=== PATIENT | male | born 1985 | race Caucasian/White ===

== ENCOUNTER 2016-05-13 09:22 | Emergency (ER) | payer MEDICAID ==
[~2016-05-13] VITALS: Ht 170.2 cm; Wt 85.7 kg
[2016-05-13 09:22] VITALS: BP_SYST 152
[~2016-05-13 09:22] MED LIST: AMAN100C16 GT; DANT50CA GT; DULR10 RC; FAMO20TA98 GT; LEVE500T13 GT; METH10TA4 GT; MULT-1117 GT; OMEG500C3 GT; SODI1TAB3 GT; TEST2.5G2 TD; UBID400C6 GT; WARF2.5T2 GT; WARF5TAB2 GT
--- NOTE | 2016-05-13 09:22 | NUR ---
VERONICA Cordero from home Patient to ER bed 02 to gown for evaluation. Side rails up. Report given to SUKUMAR Diaz.
--- NOTE | 2016-05-13 09:26 | NUR ---
Dr. Gilliam at bedside for evaluation
[2016-05-13] MEDS ORDERED: GASTROGRAFIN 120 ML ONE (09:37)
--- NOTE | 2016-05-13 09:45 | NUR ---
Stoma site clean, no redness noted, no drainage. Gtube out. Unknow size gtube that came out. Site cleansed with betadine. Dr. Gilliam at bedside for gtube placement. Attempted #20, stoma site almost closed. Placed #10f boo cath with success. #16F gtube placed. Balloon inflated with 15cc NS. Pt tolerated well. Xrays orders for placement verification. Some bleeding noted. Gauze palced
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
[2016-05-13 11:20] VITALS: BP_SYST 136
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
== END 2016-05-13 11:20 | disposition home or self-care (01) ==
LOC: SED 09:22
DX: Z46.59 Encounter for fitting and adjustment of other gastrointestinal appliance and device (principal); Z88.0 Allergy status to penicillin; Z88.1 Allergy status to other antibiotic agents; Z79.899 Other long term (current) drug therapy
CPT/HCPCS: 43760; 74240; 99284; Q9963

== ENCOUNTER 2016-09-18 20:40 | Emergency (ER) | payer MEDICAID ==
[~2016-09-18] VITALS: Ht 177.8 cm; Wt 104.3 kg
[2016-09-18 20:40] VITALS: BP_SYST 112
[2016-09-18] MEDS ORDERED: NEOMYCIN/POLYMYX B/HYDROCORTISONE 10 ML OTIC SOLUTION OT ONE (21:15)
[2016-09-18] MEDS ORDERED: NEOMYCIN/POLYMYX B/HYDROCORTISONE 10 ML EAR DROPS.SUSP OT ONE (21:37)
[2016-09-18 23:06] VITALS: BP_SYST 120
== END 2016-09-18 23:06 | disposition home or self-care (01) ==
LOC: SED 21:35
DX: H60.92 Unspecified otitis externa, left ear (principal); G82.50 Quadriplegia, unspecified; Z88.0 Allergy status to penicillin; Z88.1 Allergy status to other antibiotic agents; Z79.899 Other long term (current) drug therapy
CPT/HCPCS: 99283

== ENCOUNTER 2018-06-12 15:38 | Inpatient (IN) | payer MEDICAID ==
[~2018-06-12] VITALS: Ht 172.7 cm; Wt 84.8 kg
[~2018-06-12 15:38] MED LIST changes: +FAMO-132 GT; -FAMO20TA98 GT; -LEVE500T13 GT; +LEVE500T9 GT
[2018-06-12] MEDS ORDERED: WARF1TAB2 GT (18:14)
[2018-06-12] MEDS ORDERED: LABE100T5 PO (18:14)
[2018-06-12 18:18] VITALS: BP_SYST 126
[2018-06-12 20:00] VITALS: BP_SYST 109
[2018-06-12] MEDS ORDERED: DANTROLENE SODIUM GT SCH (21:00)
[2018-06-12] MEDS: FAMOTIDINE 20 MG TABLET GT SCH (21:58)
[2018-06-12] MEDS: LABETALOL HCL 100 MG TABLET PO SCH (21:58)
[2018-06-12] MEDS: METHYLPHENIDATE HCL 10 MG TABLET GT SCH (21:58)
[2018-06-12] MEDS: LevETIRAcetam 500 MG/5 ML UDC ORAL LIQUID GT SCH (21:59)
[2018-06-12] MEDS: AMANTADINE HCL 100 MG CAP GT SCH (21:59)
[2018-06-12] MEDS: LEVOFLOXACIN 500 MG/D5W 100 ML IV SCH (21:59)
[2018-06-12 23:53] VITALS: BP_SYST 118
[2018-06-13 06:30] LABS: BASOPHILS % (AUTO) 0.4 % (0.0-2.0); EOSINOPHILS # (AUTO) 0.2 K/uL (0.0-0.4); EOSINOPHILS % (AUTO) 2.7 % (0.0-4.0); HEMATOCRIT 42.4 % (36-54); HEMOGLOBIN 14.2 g/dL (14.0-18.0); LYMPHOCYTES # (AUTO) 2.2 K/uL (1.0-5.5); MEAN CORPUSCULAR HEMOGLOBIN 29 pg (27-31); MEAN CORPUSCULAR HGB CONC 33 % (32-36); MEAN CORPUSCULAR VOLUME 88 fL (79.0-98.0); MONOCYTES # (AUTO) 0.8 K/uL (0.0-1.0); MONOCYTES % (AUTO) 13.9 % (1.7-9.3); NEUTROPHILS # (AUTO) 2.8 K/uL (1.8-7.7); PLATELET COUNT (AUTO) 229 K/uL (130-430); RED BLOOD CELL COUNT(AUTO) 4.81 MIL/uL (4.2-6.2); RED CELL DISTRIBUTION WIDTH 12.6 % (9.0-15.0)
[2018-06-13 07:03] LABS: CALCIUM 9.4 mg/dL (8.4-11.0); CREATININE 0.53 mg/dL (0.55-1.30); POTASSIUM 3.2 mmol/L (3.5-5.1); TOTAL BILIRUBIN 0.7 mg/dL (0.0-1.0)
[2018-06-13 07:26] LABS: INR 3.8 (0.80-1.20); PROTHROMBIN TIME 36.5 SECS (9.5-12.5)
[2018-06-13 07:50] VITALS: BP_SYST 120
[2018-06-13] MEDS: FAMOTIDINE 20 MG TABLET GT SCH ×2 (09:39→21:54)
[2018-06-13] MEDS: AMANTADINE HCL 100 MG CAP GT SCH ×2 (09:39→21:54)
[2018-06-13] MEDS: METHYLPHENIDATE HCL 10 MG TABLET GT SCH ×2 (09:39→21:49)
[2018-06-13] MEDS: SODIUM CHLORIDE 500 MG TABLET GT SCH (09:39)
[2018-06-13] MEDS: LABETALOL HCL 100 MG TABLET PO SCH ×3 (09:40→21:54)
[2018-06-13] MEDS: LevETIRAcetam 500 MG/5 ML UDC ORAL LIQUID GT SCH ×2 (09:41→21:59)
[2018-06-13] MEDS ORDERED: POTASSIUM CHLORIDE 20 MEQ/PKT PACKET PO ONE (10:15)
[2018-06-13 13:22] VITALS: BP_SYST 109
[2018-06-13 16:27] VITALS: BP_SYST 103
[2018-06-13] MEDS ORDERED: WARFARIN SODIUM 2.5 MG TABLET GT SCH (18:00)
[2018-06-13 19:08] VITALS: BP_SYST 108
[2018-06-13] MEDS: LEVOFLOXACIN 500 MG/D5W 100 ML IV SCH (21:55)
[2018-06-14 06:39] LABS: INR 2.2 (0.80-1.20); PROTHROMBIN TIME 21.5 SECS (9.5-12.5)
[2018-06-14 06:51] LABS: CALCIUM 8.9 mg/dL (8.4-11.0); CREATININE 0.57 mg/dL (0.55-1.30); POTASSIUM 3.8 mmol/L (3.5-5.1)
[2018-06-14 08:00] VITALS: BP_SYST 126
[2018-06-14] MEDS: AMANTADINE HCL 100 MG CAP GT SCH ×2 (09:27→22:01)
[2018-06-14] MEDS: SODIUM CHLORIDE 500 MG TABLET GT SCH (09:27)
[2018-06-14] MEDS: FAMOTIDINE 20 MG TABLET GT SCH ×2 (09:27→22:01)
[2018-06-14] MEDS: LABETALOL HCL 100 MG TABLET PO SCH ×3 (09:28→22:01)
[2018-06-14] MEDS: METHYLPHENIDATE HCL 10 MG TABLET GT SCH ×2 (09:28→22:00)
[2018-06-14] MEDS: LevETIRAcetam 500 MG/5 ML UDC ORAL LIQUID GT SCH ×2 (09:30→22:01)
[2018-06-14 12:44] VITALS: BP_SYST 100
[2018-06-14 16:51] VITALS: BP_SYST 115
[2018-06-14] MEDS ORDERED: WARFARIN SODIUM 1 MG TABLET PO ONE (18:00)
[2018-06-14] MEDS ORDERED: WARFARIN SODIUM 1 MG TABLET GT SCH (18:00)
[2018-06-14 20:00] VITALS: BP_SYST 109
[2018-06-14] MEDS: LEVOFLOXACIN 500 MG/D5W 100 ML IV SCH (22:00)
[2018-06-15 01:57] VITALS: BP_SYST 102
[2018-06-15 08:22] LABS: INR 1.6 (0.80-1.20); PROTHROMBIN TIME 16.3 SECS (9.5-12.5)
[2018-06-15 08:31] VITALS: BP_SYST 112
[2018-06-15] MEDS: FAMOTIDINE 20 MG TABLET GT SCH (09:01)
[2018-06-15] MEDS: AMANTADINE HCL 100 MG CAP GT SCH (09:01)
[2018-06-15] MEDS: LABETALOL HCL 100 MG TABLET PO SCH ×2 (09:01→15:40)
[2018-06-15] MEDS: METHYLPHENIDATE HCL 10 MG TABLET GT SCH (09:01)
[2018-06-15] MEDS: SODIUM CHLORIDE 500 MG TABLET GT SCH (09:01)
[2018-06-15] MEDS: LevETIRAcetam 500 MG/5 ML UDC ORAL LIQUID GT SCH (09:02)
[2018-06-15 12:00] VITALS: BP_SYST 104
[2018-06-15 15:26] VITALS: BP_SYST 121
[2018-06-15 16:05] VITALS: BP_SYST 106
[2018-06-15 17:29] VITALS: BP_SYST 121
[2018-06-15] MEDS ORDERED: WARFARIN SODIUM 2.5 MG TABLET PO ONE (18:00)
== END 2018-06-15 18:25 | disposition home health service (06) | DRG 137 ==
LOC: STU 17:47
PROVIDERS: ADMIT Internal Medicine Hospice and Palliative Medicine; ATTEND Internal Medicine Hospice and Palliative Medicine
DX: J69.0 Pneumonitis due to inhalation of food and vomit (principal); G93.49 Other encephalopathy; D68.9 Coagulation defect, unspecified; Z93.1 Gastrostomy status; G40.909 Epilepsy, unspecified, not intractable, without status epilepticus; N39.0 Urinary tract infection, site not specified; Z88.0 Allergy status to penicillin; Z88.1 Allergy status to other antibiotic agents; Z88.8 Allergy status to other drugs, medicaments and biological substances; Z91.048 Other nonmedicinal substance allergy status; Z87.820 Personal history of traumatic brain injury
CPT/HCPCS: 36415; 36600; 71045; 80048; 80053; 82803-TC; 85025; 85610-TC; G0378; J1956

== ENCOUNTER 2020-03-24 12:39 | Inpatient (IN) | payer MEDICAID, SELFPAY ==
[~2020-03-24] VITALS: Ht 172.7 cm; Wt 78.0 kg
[~2020-03-24 12:39] MED LIST changes: -DULR10 RC; +LABE100T5 PO; -MULT-1117 GT; -OMEG500C3 GT; -TEST2.5G2 TD; -UBID400C6 GT; +WARF1TAB2 GT; -WARF5TAB2 GT
[2020-03-24 12:52] VITALS: BP_SYST 81
[2020-03-24 13:40] LABS: BASOPHILS % (AUTO) 0.8 % (0.0-2.0); EOSINOPHILS % (AUTO) 1.2 % (0.0-4.0); HEMATOCRIT 37.1 % (36-54); HEMOGLOBIN 12.4 g/dL (14.0-18.0); LYMPHOCYTES # (AUTO) 0.8 K/uL (1.0-5.5); LYMPHOCYTES % (AUTO) 28.1 % (20.5-51.5); MEAN CORPUSCULAR HEMOGLOBIN 30 pg (27-31); MEAN CORPUSCULAR HGB CONC 34 % (32-36); MEAN CORPUSCULAR VOLUME 88 fL (79.0-98.0); MONOCYTES # (AUTO) 0.4 K/uL (0.0-1.0); MONOCYTES % (AUTO) 13.2 % (1.7-9.3); NEUTROPHILS # (AUTO) 1.6 K/uL (1.8-7.7); NEUTROPHILS % (AUTO) 56.7 % (40.0-70.0); PLATELET COUNT (AUTO) 156 K/uL (130-430); RED BLOOD CELL COUNT(AUTO) 4.21 MIL/uL (4.2-6.2); RED CELL DISTRIBUTION WIDTH 13.1 % (9.0-15.0); WHITE BLOOD COUNT (AUTO) 2.9 K/uL (4.8-10.8)
[2020-03-24 13:59] LABS: CALCIUM 8.1 mg/dL (8.4-11.0); CREATININE 0.49 mg/dL (0.55-1.30); POTASSIUM 4.2 mmol/L (3.5-5.1)
[2020-03-24 14:14] LABS: ALBUMIN 2.7 g/dL (3.4-4.8); TOTAL BILIRUBIN 0.5 mg/dL (0.0-1.0)
[2020-03-24 14:24] LABS: C-REACTIVE PROTEIN QUANT 5.5 mg/dL (0-0.5)
[2020-03-24 14:27] LABS: PROTHROMBIN TIME 41.5 SECS (9.5-12.5)
[2020-03-24 14:28] LABS: INR 4.2 (0.80-1.20)
[2020-03-24] MEDS ORDERED: DEXAMETHASONE SOD PHOSPHATE 10 MG/ML VIAL IVP ONE (15:45)
[2020-03-24] MEDS: D5/0.45 NS 1,000 ML IV SCH (17:11)
[2020-03-24] MEDS ORDERED: OMEP20CA15 PO (19:03)
[2020-03-24 20:11] VITALS: BP_SYST 103
[2020-03-24] MEDS ORDERED: ENOXAPARIN SODIUM 40 MG/0.4 ML SYRINGE SUBCUT SCH (21:00)
[2020-03-24] MEDS: DOXYCYCLINE HYCLATE 100 MG in D5W 100 ML IV SCH (21:16)
[2020-03-24] MEDS: ASCORBIC ACID 500 MG TABLET PO SCH (21:30)
[2020-03-24] MEDS ORDERED: ALBUTEROL MDI INHALATION 8 GM INH INH PRN (23:45)
[2020-03-25 00:23] VITALS: BP_SYST 105
[2020-03-25 06:27] LABS: CALCIUM 8.6 mg/dL (8.4-11.0); CREATININE 0.64 mg/dL (0.55-1.30); POTASSIUM 4.5 mmol/L (3.5-5.1)
[2020-03-25 06:32] LABS: ALBUMIN 2.7 g/dL (3.4-4.8); TOTAL BILIRUBIN 0.4 mg/dL (0.0-1.0)
[2020-03-25 06:49] LABS: BASOPHILS % (AUTO) 0.4 % (0.0-2.0); EOSINOPHILS % (AUTO) 0.1 % (0.0-4.0); HEMATOCRIT 37.4 % (36-54); HEMOGLOBIN 12.8 g/dL (14.0-18.0); LYMPHOCYTES # (AUTO) 0.4 K/uL (1.0-5.5); LYMPHOCYTES % (AUTO) 16.4 % (20.5-51.5); MEAN CORPUSCULAR HEMOGLOBIN 30 pg (27-31); MEAN CORPUSCULAR HGB CONC 34 % (32-36); MEAN CORPUSCULAR VOLUME 87 fL (79.0-98.0); MONOCYTES # (AUTO) 0.2 K/uL (0.0-1.0); MONOCYTES % (AUTO) 7.7 % (1.7-9.3); NEUTROPHILS % (AUTO) 75.4 % (40.0-70.0); PLATELET COUNT (AUTO) 178 K/uL (130-430); RED BLOOD CELL COUNT(AUTO) 4.29 MIL/uL (4.2-6.2); RED CELL DISTRIBUTION WIDTH 12.8 % (9.0-15.0)
[2020-03-25 07:34] LABS: C-REACTIVE PROTEIN QUANT 5.9 mg/dL (0-0.5)
[2020-03-25 08:40] LABS: WHITE BLOOD COUNT (AUTO) 2.6 K/uL (4.8-10.8)
[2020-03-25 08:53] VITALS: BP_SYST 136
[2020-03-25] MEDS: ASCORBIC ACID 500 MG TABLET PO SCH ×2 (08:53→20:17)
[2020-03-25] MEDS: CHOLECALCIFEROL (VITAMIN D3) 5,000 UNIT TABLET PO SCH (08:53)
[2020-03-25] MEDS: DEXAMETHASONE SOD PHOSPHATE 10 MG/ML VIAL IVP SCH (08:53)
[2020-03-25] MEDS: DOXYCYCLINE HYCLATE 100 MG in D5W 100 ML IV SCH ×2 (08:53→20:17)
[2020-03-25 11:34] VITALS: BP_SYST 151
[2020-03-25] MEDS: D5/0.45 NS 1,000 ML IV SCH (12:45)
[2020-03-25 16:00] VITALS: BP_SYST 136
[2020-03-25 20:10] VITALS: BP_SYST 111
[2020-03-26] VITALS: BP_SYST 113
[2020-03-26 08:30] VITALS: BP_SYST 117
[2020-03-26] MEDS: DOXYCYCLINE HYCLATE 100 MG in D5W 100 ML IV SCH ×2 (08:45→22:28)
[2020-03-26] MEDS: IVERMECTIN 3 MG TABLET PO SCH (08:46)
[2020-03-26] MEDS: CHOLECALCIFEROL (VITAMIN D3) 5,000 UNIT TABLET PO SCH (08:46)
[2020-03-26] MEDS: DEXAMETHASONE SOD PHOSPHATE 10 MG/ML VIAL IVP SCH (08:47)
[2020-03-26] MEDS: D5/0.45 NS 1,000 ML IV SCH (08:47)
[2020-03-26] MEDS: ASCORBIC ACID 500 MG TABLET PO SCH ×2 (08:47→22:28)
[2020-03-26] MEDS ORDERED: OMEPRAZOLE Non-Formulary 20 MG CAPSULE.DR PO SCH (10:30)
[2020-03-26] MEDS ORDERED: levETIRAcetam 500 MG TABLET GT SCH (10:30)
[2020-03-26] MEDS ORDERED: LevETIRAcetam 500 MG/5 ML UDC ORAL LIQUID GT ONE (10:45)
[2020-03-26] MEDS ORDERED: LABETALOL HCL 100 MG TABLET PO ONE (11:00)
[2020-03-26] MEDS: METHYLPHENIDATE HCL 10 MG TABLET GT SCH ×2 (11:56→22:29)
[2020-03-26 12:19] VITALS: BP_SYST 101
[2020-03-26] MEDS: LABETALOL HCL 100 MG TABLET PO SCH ×2 (14:49→21:00)
[2020-03-26 16:00] VITALS: BP_SYST 101
[2020-03-26 20:00] VITALS: BP_SYST 95
[2020-03-26] MEDS: LevETIRAcetam 500 MG/5 ML UDC ORAL LIQUID GT SCH (22:28)
[2020-03-27] VITALS: BP_SYST 100
[2020-03-27] MEDS: D5/0.45 NS 1,000 ML IV SCH (04:45)
[2020-03-27 05:40] VITALS: BP_SYST 100
[2020-03-27] MEDS: ALBUTEROL MDI INHALATION 8 GM INH INH SCH ×3 (06:00→13:19)
[2020-03-27 08:00] VITALS: BP_SYST 101
[2020-03-27] MEDS: LABETALOL HCL 100 MG TABLET PO SCH ×3 (09:00→22:00)
[2020-03-27] MEDS: DOXYCYCLINE HYCLATE 100 MG in D5W 100 ML IV SCH ×2 (09:35→22:00)
[2020-03-27] MEDS: ASCORBIC ACID 500 MG TABLET PO SCH ×2 (09:36→22:00)
[2020-03-27] MEDS: CHOLECALCIFEROL (VITAMIN D3) 5,000 UNIT TABLET PO SCH (09:36)
[2020-03-27] MEDS: DEXAMETHASONE SOD PHOSPHATE 10 MG/ML VIAL IVP SCH (09:36)
[2020-03-27] MEDS: METHYLPHENIDATE HCL 10 MG TABLET GT SCH ×2 (09:38→22:00)
[2020-03-27 11:22] VITALS: BP_SYST 98
[2020-03-27] MEDS: LevETIRAcetam 500 MG/5 ML UDC ORAL LIQUID GT SCH ×2 (12:00→22:00)
[2020-03-27 15:40] VITALS: BP_SYST 117
[2020-03-27 20:00] VITALS: BP_SYST 103
[2020-03-28] VITALS: BP_SYST 109
[2020-03-28] MEDS: D5/0.45 NS 1,000 ML IV SCH ×2 (00:45→21:26)
[2020-03-28] MEDS: ALBUTEROL MDI INHALATION 8 GM INH INH SCH ×4 (05:14→19:10)
[2020-03-28 07:58] VITALS: BP_SYST 101
[2020-03-28] MEDS: LABETALOL HCL 100 MG TABLET PO SCH ×3 (08:42→21:22)
[2020-03-28] MEDS: ASCORBIC ACID 500 MG TABLET PO SCH ×2 (08:49→21:22)
[2020-03-28] MEDS: METHYLPHENIDATE HCL 10 MG TABLET GT SCH ×2 (08:49→21:23)
[2020-03-28] MEDS: CHOLECALCIFEROL (VITAMIN D3) 5,000 UNIT TABLET PO SCH (08:50)
[2020-03-28] MEDS: DEXAMETHASONE SOD PHOSPHATE 10 MG/ML VIAL IVP SCH (08:50)
[2020-03-28] MEDS: LevETIRAcetam 500 MG/5 ML UDC ORAL LIQUID GT SCH ×2 (08:50→21:21)
[2020-03-28] MEDS: IVERMECTIN 3 MG TABLET PO SCH (08:50)
[2020-03-28] MEDS: DOXYCYCLINE HYCLATE 100 MG in D5W 100 ML IV SCH ×2 (09:22→21:21)
[2020-03-28 11:29] VITALS: BP_SYST 108
[2020-03-28 15:41] VITALS: BP_SYST 102
[2020-03-28 20:00] VITALS: BP_SYST 103
[2020-03-29] VITALS (7 sets, daily range): BP systolic 104–124
[2020-03-29] MEDS: ALBUTEROL MDI INHALATION 8 GM INH INH SCH ×4 (03:00→19:35)
[2020-03-29 06:30] LABS: BASOPHILS % (AUTO) 0.2 % (0.0-2.0); EOSINOPHILS % (AUTO) 0.1 % (0.0-4.0); HEMATOCRIT 35.8 % (36-54); HEMOGLOBIN 12.1 g/dL (14.0-18.0); LYMPHOCYTES # (AUTO) 1.4 K/uL (1.0-5.5); LYMPHOCYTES % (AUTO) 15.2 % (20.5-51.5); MEAN CORPUSCULAR HEMOGLOBIN 30 pg (27-31); MEAN CORPUSCULAR HGB CONC 34 % (32-36); MEAN CORPUSCULAR VOLUME 88 fL (79.0-98.0); MONOCYTES # (AUTO) 1.6 K/uL (0.0-1.0); MONOCYTES % (AUTO) 17.2 % (1.7-9.3); NEUTROPHILS # (AUTO) 6.2 K/uL (1.8-7.7); NEUTROPHILS % (AUTO) 67.3 % (40.0-70.0); PLATELET COUNT (AUTO) 243 K/uL (130-430); RED BLOOD CELL COUNT(AUTO) 4.05 MIL/uL (4.2-6.2); RED CELL DISTRIBUTION WIDTH 12.9 % (9.0-15.0); WHITE BLOOD COUNT (AUTO) 9.1 K/uL (4.8-10.8)
[2020-03-29 07:09] LABS: CALCIUM 7.8 mg/dL (8.4-11.0); CREATININE 0.46 mg/dL (0.55-1.30); POTASSIUM 3.9 mmol/L (3.5-5.1)
[2020-03-29] MEDS: LevETIRAcetam 500 MG/5 ML UDC ORAL LIQUID GT SCH ×2 (09:34→21:17)
[2020-03-29] MEDS: CHOLECALCIFEROL (VITAMIN D3) 5,000 UNIT TABLET PO SCH (09:34)
[2020-03-29] MEDS: DOXYCYCLINE HYCLATE 100 MG in D5W 100 ML IV SCH ×2 (09:34→21:17)
[2020-03-29] MEDS: METHYLPHENIDATE HCL 10 MG TABLET GT SCH ×2 (09:35→21:17)
[2020-03-29] MEDS: ASCORBIC ACID 500 MG TABLET PO SCH ×2 (09:35→21:17)
[2020-03-29] MEDS: LABETALOL HCL 100 MG TABLET PO SCH ×3 (09:40→21:00)
[2020-03-29] MEDS: DEXAMETHASONE SOD PHOSPHATE 10 MG/ML VIAL IVP SCH (09:41)
[2020-03-29] MEDS: D5/0.45 NS 1,000 ML IV SCH (17:41)
[2020-03-30] VITALS (7 sets, daily range): BP systolic 95–118
[2020-03-30] MEDS: ALBUTEROL MDI INHALATION 8 GM INH INH SCH ×4 (02:30→19:20)
[2020-03-30] MEDS: LABETALOL HCL 100 MG TABLET PO SCH ×3 (09:00→22:21)
[2020-03-30] MEDS: DOXYCYCLINE HYCLATE 100 MG in D5W 100 ML IV SCH ×2 (09:17→22:22)
[2020-03-30] MEDS: CHOLECALCIFEROL (VITAMIN D3) 5,000 UNIT TABLET PO SCH (09:17)
[2020-03-30] MEDS: ASCORBIC ACID 500 MG TABLET PO SCH ×2 (09:17→22:21)
[2020-03-30] MEDS: METHYLPHENIDATE HCL 10 MG TABLET GT SCH ×2 (09:17→22:21)
[2020-03-30] MEDS: DEXAMETHASONE SOD PHOSPHATE 10 MG/ML VIAL IVP SCH (09:17)
[2020-03-30] MEDS: LevETIRAcetam 500 MG/5 ML UDC ORAL LIQUID GT SCH ×2 (09:18→22:18)
[2020-03-30] MEDS: D5/0.45 NS 1,000 ML IV SCH (15:50)
[2020-03-31] VITALS: BP_SYST 110
[2020-03-31] MEDS: ALBUTEROL MDI INHALATION 8 GM INH INH SCH ×3 (00:30→15:48)
[2020-03-31] MEDS: D5/0.45 NS 1,000 ML IV SCH (05:29)
[2020-03-31 08:00] VITALS: BP_SYST 112
[2020-03-31] MEDS: DOXYCYCLINE HYCLATE 100 MG in D5W 100 ML IV SCH ×2 (08:27→20:10)
[2020-03-31] MEDS: ASCORBIC ACID 500 MG TABLET PO SCH ×2 (08:28→20:15)
[2020-03-31] MEDS: LevETIRAcetam 500 MG/5 ML UDC ORAL LIQUID GT SCH ×2 (08:28→20:10)
[2020-03-31] MEDS: CHOLECALCIFEROL (VITAMIN D3) 5,000 UNIT TABLET PO SCH (08:28)
[2020-03-31] MEDS: DEXAMETHASONE SOD PHOSPHATE 10 MG/ML VIAL IVP SCH (08:28)
[2020-03-31] MEDS: METHYLPHENIDATE HCL 10 MG TABLET GT SCH ×2 (08:28→20:11)
[2020-03-31] MEDS: LABETALOL HCL 100 MG TABLET PO SCH ×3 (08:41→20:15)
[2020-03-31 12:06] VITALS: BP_SYST 103
[2020-03-31 16:06] VITALS: BP_SYST 118
[2020-03-31 20:00] VITALS: BP_SYST 131
[2020-04-01] VITALS: BP_SYST 149
[2020-04-01] MEDS: ALBUTEROL MDI INHALATION 8 GM INH INH SCH ×4 (00:43→19:35)
[2020-04-01] MEDS: D5/0.45 NS 1,000 ML IV SCH (06:02)
[2020-04-01 08:00] VITALS: BP_SYST 110
[2020-04-01] MEDS: METHYLPHENIDATE HCL 10 MG TABLET GT SCH ×2 (09:00→20:18)
[2020-04-01] MEDS: DEXAMETHASONE SOD PHOSPHATE 10 MG/ML VIAL IVP SCH (09:41)
[2020-04-01] MEDS: LABETALOL HCL 100 MG TABLET PO SCH ×3 (09:41→20:20)
[2020-04-01] MEDS: DOXYCYCLINE HYCLATE 100 MG in D5W 100 ML IV SCH ×2 (09:41→20:16)
[2020-04-01] MEDS: ASCORBIC ACID 500 MG TABLET PO SCH ×2 (09:41→20:17)
[2020-04-01] MEDS: CHOLECALCIFEROL (VITAMIN D3) 5,000 UNIT TABLET PO SCH (09:41)
[2020-04-01] MEDS: LevETIRAcetam 500 MG/5 ML UDC ORAL LIQUID GT SCH ×2 (09:41→20:17)
[2020-04-01 12:00] VITALS: BP_SYST 110
[2020-04-01 16:00] VITALS: BP_SYST 112
[2020-04-01 20:15] VITALS: BP_SYST 113
[2020-04-02 00:15] VITALS: BP_SYST 117
[2020-04-02] MEDS: D5/0.45 NS 1,000 ML IV SCH (01:09)
[2020-04-02 06:41] LABS: BASOPHILS % (AUTO) 0.1 % (0.0-2.0); EOSINOPHILS % (AUTO) 0.1 % (0.0-4.0); HEMATOCRIT 36.6 % (36-54); HEMOGLOBIN 12.3 g/dL (14.0-18.0); LYMPHOCYTES # (AUTO) 1.6 K/uL (1.0-5.5); LYMPHOCYTES % (AUTO) 12.9 % (20.5-51.5); MEAN CORPUSCULAR HEMOGLOBIN 30 pg (27-31); MEAN CORPUSCULAR HGB CONC 34 % (32-36); MEAN CORPUSCULAR VOLUME 89 fL (79.0-98.0); MONOCYTES # (AUTO) 1.6 K/uL (0.0-1.0); NEUTROPHILS # (AUTO) 8.9 K/uL (1.8-7.7); NEUTROPHILS % (AUTO) 73.9 % (40.0-70.0); PLATELET COUNT (AUTO) 263 K/uL (130-430); RED BLOOD CELL COUNT(AUTO) 4.11 MIL/uL (4.2-6.2); RED CELL DISTRIBUTION WIDTH 13.4 % (9.0-15.0)
[2020-04-02 06:58] LABS: CALCIUM 8.5 mg/dL (8.4-11.0); CREATININE 0.44 mg/dL (0.55-1.30); PHOSPHORUS 3.6 mg/dL (2.7-4.5); POTASSIUM 3.6 mmol/L (3.5-5.1)
[2020-04-02] MEDS: ALBUTEROL MDI INHALATION 8 GM INH INH SCH ×2 (07:46→13:59)
[2020-04-02 07:55] VITALS: BP_SYST 118
[2020-04-02] MEDS: LevETIRAcetam 500 MG/5 ML UDC ORAL LIQUID GT SCH (09:11)
[2020-04-02] MEDS: DOXYCYCLINE HYCLATE 100 MG in D5W 100 ML IV SCH (09:11)
[2020-04-02] MEDS: DEXAMETHASONE SOD PHOSPHATE 10 MG/ML VIAL IVP SCH (09:11)
[2020-04-02] MEDS: CHOLECALCIFEROL (VITAMIN D3) 5,000 UNIT TABLET PO SCH (09:12)
[2020-04-02] MEDS: ASCORBIC ACID 500 MG TABLET PO SCH (09:12)
[2020-04-02] MEDS: METHYLPHENIDATE HCL 10 MG TABLET GT SCH (09:13)
[2020-04-02] MEDS: LABETALOL HCL 100 MG TABLET PO SCH (09:19)
[2020-04-02 12:00] VITALS: BP_SYST 112
[2020-04-02 14:21] VITALS: BP_SYST 112
[2020-04-02 16:46] VITALS: BP_SYST 112
== END 2020-04-02 15:10 | disposition home or self-care (01) | DRG 137 ==
LOC: SED 12:39 → STU 16:37
PROVIDERS: ADMIT Internal Medicine; ATTEND Internal Medicine
DX: U07.1 COVID-19 (principal); J12.82 Pneumonia due to coronavirus disease 2019; G82.50 Quadriplegia, unspecified; R65.11 Systemic inflammatory response syndrome (SIRS) of non-infectious origin with acute organ dysfunction; Z87.820 Personal history of traumatic brain injury; Z88.1 Allergy status to other antibiotic agents; Z88.0 Allergy status to penicillin; Z88.8 Allergy status to other drugs, medicaments and biological substances
CPT/HCPCS: 36415; 36600; 71045; 80048; 80053; 82550-TC; 82728; 82803-TC; 83605; 83615-TC; 83735-TC; 83880; 84100-TC; 84484; 85025; 85379; 85384-TC; 85610-TC; 85730-TC; 86140; 86886; 86900; 86901; 87040-TC; 93005; 94640; 94760; 96361; 96365; 96375; 99291; J1100; J1956; J3490; J7060